=== PATIENT | female | born 1970 | race Caucasian/White ===

== ENCOUNTER → 2016-11-06 | Outpatient (CLI) | payer OTHER | LOC: LAB 10:19 | DX: N30.01 Acute cystitis with hematuria (principal); N39.0 Urinary tract infection, site not specified ==

== ENCOUNTER → 2019-03-16 | Outpatient (CLI) | payer OTHER ==
[~2019-03-16] VITALS: Ht 170.2 cm; Wt 96.4 kg
[~2019-03-16] MED LIST: ESTROGEN; MOBIC7.5 MG; MULTIVITAMIN W1 EACH PO
[2019-03-16 09:25] VITALS: BP 111/67
[2019-03-16 10:16] LABS: PH-URINE 6.5 (5.0 - 8.0); URINE APPEARANCE HAZY; URINE BILIRUBIN NEGATIVE (NEGATIVE); URINE BLOOD NEGATIVE (NEGATIVE); URINE COLOR YELLOW; URINE GLUCOSE NEGATIVE (NEGATIVE); URINE KETONE NEGATIVE (NEGATIVE); URINE LEUKOCYTE ESTERASE NEGATIVE (NEGATIVE); URINE NITRATE NEGATIVE (NEGATIVE); URINE PROTEIN(semi-quant) NEGATIVE (NEGATIVE); URINE UROBILINOGEN NORMAL (NORMAL)
[2019-03-16 10:17] LABS: EOS # 0.1 (0.04-0.40); EOS % 1.9 % (1.0-5.0); HEMATOCRIT 39.2 % (37.0-47.0); HEMOGLOBIN 12.9 g/dL (12.5-16.0); LYMPH# 2.4 (1.50-4.00); MEAN CELL VOLUME 91 fl (78-100); MEAN CORPUSCULAR HEMOGLOBIN 30 pg (27-31); MEAN CORPUSCULAR HGB CONC 33 g/dL (33-37); MEAN PLATELET VOLUME 11.2 fl (7.4-10.4); MONO # 0.5 (0.20-0.80); NEU # 2.8 (1.40-6.50); PLATELET COUNT 252 K/mm3 (130-400); RED BLOOD COUNT 4.32 M/mm3 (4.10-5.30); RED CELL DISTRIBUTION WIDTH 13.8 % (11.5-14.5); URINE MUCUS PRESENT (NOT PRESENT); URINE WBC 0-1 /hpf (0-3); WHITE BLOOD COUNT 5.9 K/mm3 (4.8-10.8)
== END ==
LOC: AMSURD 08:51 → LAB 08:51
PROVIDERS: Family Medicine
DX: Z01.818 Encounter for other preprocedural examination (principal)

== ENCOUNTER → 2019-03-25 | Outpatient (CLI) | payer OTHER ==
[2019-03-16 09:25] VITALS: BP 111/67
[2019-03-25 09:04] LABS: PROTHROMBIN TIME 10.7 SECONDS (9.0-12.0)
[2019-03-25 10:06] LABS: POTASSIUM 3.8 mmol/L (3.5-5.1)
[2019-03-25 10:07] LABS: CALCIUM 9.2 mg/dL (8.3-10.5)
[2019-03-25 10:08] LABS: TOTAL PROTEIN 6.8 g/dL (6.4-8.3)
[2019-03-25 10:10] LABS: TOTAL BILIRUBIN 0.4 mg/dL (0.2-1.2)
== END ==
LOC: LAB 08:32
PROVIDERS: Family Medicine
DX: Z01.818 Encounter for other preprocedural examination (principal)

== ENCOUNTER → 2020-12-21 | Outpatient (CLI) | payer OTHER ==
[2020-12-21 07:54] LABS: BASO # 0.03 (0.02-0.10); EOS # 0.23 (0.04-0.40); EOS % 3.3 % (1.0-5.0); HEMATOCRIT 39.8 % (37.0-47.0); HEMOGLOBIN 13.4 g/dL (12.5-16.0); LYMPH# 2.73 (1.50-4.00); MEAN CELL VOLUME 91 fl (78-100); MEAN CORPUSCULAR HEMOGLOBIN 31 pg (27-31); MEAN CORPUSCULAR HGB CONC 34 g/dL (33-37); MEAN PLATELET VOLUME 9.8 fl (7.4-10.4); MONO # 0.44 (0.20-0.80); NEU # 3.43 (1.40-6.50); PLATELET COUNT 284 K/mm3 (130-400); RED BLOOD COUNT 4.37 M/mm3 (4.10-5.30); RED CELL DISTRIBUTION WIDTH 12.9 % (11.5-14.5); WHITE BLOOD COUNT 6.9 K/mm3 (4.8-10.8)
[2020-12-21 07:59] LABS: ALBUMIN 3.8 g/dL (3.5-5.0); POTASSIUM 4.1 mmol/L (3.5-5.1)
[2020-12-21 08:00] LABS: CALCIUM 8.7 mg/dL (8.3-10.5)
[2020-12-21 08:01] LABS: TOTAL PROTEIN 6.6 g/dL (6.4-8.3)
[2020-12-21 08:03] LABS: TOTAL BILIRUBIN 0.3 mg/dL (0.2-1.2)
== END ==
LOC: LAB 12-20 16:37
PROVIDERS: Family Medicine
DX: Z00.00 Encounter for general adult medical examination without abnormal findings (principal); E56.9 Vitamin deficiency, unspecified; R53.83 Other fatigue; E78.5 Hyperlipidemia, unspecified